=== PATIENT | female | born 1950 | race African-American/Black ===

== ENCOUNTER 2020-08-07 01:01 | Emergency (ER) | payer SELFPAY ==
[~2020-08-07] VITALS: Ht 162.6 cm; Wt 69.9 kg
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
[2020-08-07] MEDS ORDERED: LORAZEPAM INJ 2 MG/ML VIAL ONE (01:09)
[2020-08-07] MEDS ORDERED: diphenhydrAMINE HCL 50 MG/ML VIAL ONE (01:21)
[2020-08-07] MEDS ORDERED: HALOPERIDOL LACTATE INJ 5 MG/ML VIAL ONE (01:21)
[2020-08-07] MEDS ORDERED: LORAZEPAM INJ 2 MG/ML VIAL IM ONE (01:30)
[2020-08-07] MEDS ORDERED: HALOPERIDOL LACTATE INJ 5 MG/ML VIAL IM ONE (01:30)
[2020-08-07] MEDS ORDERED: diphenhydrAMINE HCL 50 MG/ML VIAL IM ONE (01:30)
[2020-08-07 01:43] LABS: BASOPHILS # (AUTO) 0.1 /CMM (0.0-0.2); BASOPHILS % (AUTO) 0.7 % (0.0-2.0); CALCIUM, SERUM 9.2 mg/dL (8.5-10.1); CARBON DIOXIDE 29 mmol/L (21-32); CHLORIDE 104 mmol/L (98-107); CREATININE 0.7 mg/dL (0.6-1.3); EOSINOPHILS % (AUTO) 2.5 % (0.0-6.0); GLUCOSE 100 mg/dL (74-106); HEMATOCRIT 38 % (33-45); HEMOGLOBIN 12.8 g/dL (11.5-14.8); LYMPHOCYTES % (AUTO) 22.2 % (20.0-44.0); MEAN CORPUSCULAR HGB CONC 33 g/dl (31.0-36.0); MEAN CORPUSCULAR VOLUME 93 fL (82-100); MONOCYTES # (AUTO) 0.6 /CMM (0.1-1.30); MONOCYTES % (AUTO) 6.8 % (2.0-12.0); NEUTROPHILS # (AUTO) 6.2 /CMM (1.8-8.9); NEUTROPHILS % (AUTO) 67.8 % (43.0-81.0); PLATELET COUNT (AUTO) 279 /CMM (150-450); RED BLOOD CELL COUNT(AUTO) 4.12 MIL/uL (4.0-5.2); SODIUM SERUM 141 mmol/L (136-145); UREA NITROGEN, BLOOD 18 mg/dL (7-18); WHITE BLOOD COUNT (AUTO) 9.1 K/uL (4.3-11.0)
[2020-08-07 01:49] LABS: ALANINE AMINOTRANSFERASE 24 U/L (12-78); ALBUMIN 3.5 g/dL (3.4-5.0); ALCOHOL, BLOOD < 3 mg/dL (0-0); ALKALINE PHOSPHATASE 86 U/L (46-116); ASPARTATE AMINOTRANSFERASE 19 U/L (15-37); BILIRUBIN,DIRECT 0.1 mg/dL (0.0-0.2); BILIRUBIN,TOTAL 0.3 mg/dL (0.2-1.0); TOTAL PROTEIN, SERUM 7.5 g/dL (6.4-8.2)
[2020-08-07 01:51] LABS: ACETAMINOPHEN < 10 ug/ml (10-30)
--- NOTE | 2020-08-07 02:44 | NUR ---
PATIENT IS ASLEEPING. EASILY AROUSABLE THROUGH TOUCH AND VERBAL STIMULI. CONNECTED TO THE STEAM SHOVEL OILER. BREATHING EVENLY AND UNLABORED ON ROOM AIR. SITTER AT BEDSIDE.
--- NOTE | 2020-08-07 02:54 | NUR ---
URINE COLLECTED AND SENT TO THE LAB.
[2020-08-07 03:31] LABS: APPEARANCE,URINE CLEAR (CLEAR); BILIRUBIN,URINE NEGATIVE (NEGATIVE); BLOOD, URINE NEGATIVE Ery/uL (NEGATIVE); COLOR,URINE YELLOW (YELLOW); KETONES,URINE NEGATIVE (NEGATIVE); LEUKOCYTE ESTERASE ,URINE NEGATIVE (NEGATIVE); NITRITE, URINE NEGATIVE (NEGATIVE); PROTEIN,URINE NEGATIVE (NEGATIVE); UGLUCOSE NEGATIVE (NEGATIVE); UROBILINOGEN,URINE 0.2 EU/dL (0.2)
--- NOTE | 2020-08-07 05:56 | NUR ---
PATIENT IS ASLEEP. CHEST RISING AND FALLING EVENLY ON ROOM AIR. CONNECTED TO THE WATER COMMISSIONER. SITTER AT BEDSIDE. SIDE RAILS ARE UP FOR SAFETY. BED AT THE LOWEST POSITION.
--- NOTE | 2020-08-07 10:58 | NUR ---
CALLED ART [phone]
--- NOTE | 2020-08-07 12:00 | NUR ---
ART, PORTFOLIO MGR AT BEDSIDE
--- NOTE | 2020-08-07 13:46 | NUR ---
Per CAMILO Montenegro's request, RASHAD notified ED nursing staff, Ganesh that the pt. expressed wanting to be discharged to the street upon safety director, Hill's interview(see his note for details). The pt. is experiencing homeless and was given Homeless resources by Crisis Team, Hill.
--- NOTE | 2020-08-07 14:02 | NUR ---
PT IS PSYCHIATRICALLY AND MEDICALLY CLEARED FOR DISCHARGE. PT VERBALIZED THAT SHE WANTS TO BE DISCHARGED TO THE "STREET" WHERE SHE WAS. PENITENTIARY OFFERED BUT PT REFUSED.
--- NOTE | 2020-08-07 14:03 | NUR ---
Patient discharged to home in stable condition. Written and verbal after care instructions given. Patient verbalizes understanding of instruction. Pt ambulatory with a steady gait
[2020-08-07 14:04] VITALS: BP 135/81
== END 2020-08-07 14:04 | disposition home or self-care (01) ==
LOC: EDBD 01:05 → ER 01:05
DX: R45.1 Restlessness and agitation (principal); F15.10 Other stimulant abuse, uncomplicated; Z59.0 Homelessness
CPT/HCPCS: 36415; 80048; 80076; 80299; 80307; 80320; 81001; 85025; 96372 ×2; 99285; J1200; J1630; J2060; 81000-TC; G0480